=== PATIENT | male | born 1985 | race Caucasian/White ===

== ENCOUNTER 2020-06-04 12:19 | Emergency (ER) | payer SELFPAY ==
[2020-06-04 12:26] VITALS: BP 151/83; PULSE 104; RESP 16; TEMP 36.8; O2SAT 100
--- NOTE | 2020-06-04 12:29 | ED.GENADULT ---
HPI - General Adult General Chief complaint: Epistaxis Stated complaint: ELEVATED BLOOD PRESSURE Time Seen by Provider: 06/04/20 12:29 Source: patient and RN notes reviewed Mode of arrival: ambulatory Limitations: no limitations History of Present Illness HPI narrative: 35-year-old male presents with complaints of elevated blood pressure for 1 day. Mukul reports elevated blood pressure reading on a old blood pressure machine of 130/110 on 06/03/2020 and a scant nose of bleed from LT nostril only. Symptoms has increased over the last 24 hours with increase blood pressure readings of 180/140 without headaches or vision changes. No treatment. Denies dyspnea and chest pain. Denies fatigue, numbness or tingling in the extremities, headache, or vision disturbance. Denies URI symptoms. Denies dysuria or hematuria. Denies rapid heart beat, dizziness, lightheadedness, and alter mental status. Denies fever or chills. Denies nausea, vomiting, and abdominal pain. Tolerating po intake well. The patient reports he have not been diagnosed with COVID-19. The patient reports he have received 1 Pfizer COVID-19 vaccince and awaiting 2nd dose at this time. The patient reports he is not waiting for the results of a COVID-19 lab test. The patient reports he do not have a new or worsening cough. The patient reports he do not have any rhinorrhea, congestion, sore throat, loss of taste or smell, or diarrhea. Denies recent traveling. Denies concerns for COVID-19 or exposures been home with limited outdoor exposure except for essential household needs and return home. At this time, patient is not suspected of having COVID-19. Some parts of this dictation were generated by voice recognition software and may contain typographical and/or grammatical inaccuracies. Related Data Allergies Allergy/AdvReac Type Severity Reaction Status Date / Time No Known Allergies Allergy Verified 06/04/20 12:24 Review of Systems Review of Systems: Narrative: CONSTITUTIONAL: Denies fever, chills, sweats. EYES: Denies visual changes, redness, discharge. ENT: Denies rhinorrhea, congestion, sore throat, otalgia. Complains of nosebleed. CARDIOVASCULAR: Denies chest pain, palpitations, edema. Complains of elevated blood pressure. RESPIRATORY: Denies dyspnea, wheezing, cough. GASTROINTESTINAL: Denies abdominal pain, nausea, vomiting, or diarrhea. GENITOURINARY: Denies dysuria, hematuria, abnormal discharge. SKIN: Denies rash or itching. MUSCULOSKELETAL: Denies acute back pain, joint pain, or myalgia. NEUROLOGIC: Denies numbness or focal weakness. PSYCHIATRIC: Denies anxiety or depression. All systems reviewed & are unremarkable except as noted in HPI and below. [facility] Past Medical History Medical History Depression Smoker Surgical History Surgical History (Updated 06/12/20 @ 17:27 by ROSEANNE Villanueva) No significant past surgical history Family History Family History (Updated 06/12/20 @ 17:29 by ROSEANNE Villanueva) Father Hypertension Mother , Related to blood clot after a long trip Pulmonary embolism Social History Social History (Updated 06/12/20 @ 17:31 by ROSEANNE Villanueva) Smoking status: Current every day smoker Tobacco type: e-cigarettes/vaping Second hand tobacco smoke exposure: No Alcohol intake: current Substance use: never Living arrangements: with family Occupation/Education: occupation Gender identity (if verbalized by the patient): Male Sexual Orientation (if Verbalized by the Patient): Straight or Heterosexual Comments At time of signature, agree with nurse past medical, surgical, social, and family history. There is relevant patient's past medical history pertinent to the presenting complaint, and relevant family history pertinent to the presenting complaint. Exam Narrative: Exam Narrative: GENERAL: This is a well-nourished, well-developed patient, in no apparent distress. Talk
== END 2020-06-04 13:05 | disposition home or self-care (01) ==
PROVIDERS: Emergency Provider Nurse Practitioner Family
DX: J00 Acute nasopharyngitis [common cold] (principal); J01.90 Acute sinusitis, unspecified; R03.0 Elevated blood-pressure reading, without diagnosis of hypertension
CPT/HCPCS: 99213; G0463